=== PATIENT | male | born 1985 ===

== ENCOUNTER 2019-01-19 10:11 | Outpatient (CLI) | payer OTHER | END 2019-01-19 10:30 | disposition home or self-care (01) | LOC: OFIC 805 10:11 | DX: K11.5 Sialolithiasis (principal); K11.8 Other diseases of salivary glands ==

== ENCOUNTER 2019-02-03 09:59 | Outpatient (CLI) | payer OTHER ==
[~2019-02-03] VITALS: Ht 152.4 cm; Wt 81.6 kg
== END 2019-02-03 14:10 | disposition home or self-care (01) ==
LOC: OFIC 805 09:59
DX: K11.8 Other diseases of salivary glands (principal); K11.5 Sialolithiasis